=== PATIENT | female | born 1980 | race Caucasian/White ===

== ENCOUNTER 2022-07-04 13:23 | Emergency (ER) | payer OTHER ==
[2022-07-04 13:56] VITALS: BP 146/71; PULSE 94
== END 2022-07-04 15:23 | disposition home or self-care (01) ==
LOC: MW.ED 13:23
DX: F30.9 Manic episode, unspecified (principal); Z79.899 Other long term (current) drug therapy
CPT/HCPCS: 99284

== ENCOUNTER 2022-07-09 14:14 | Emergency (ER) | payer OTHER ==
[2022-07-09 15:41] LABS: ACETAMINOPHEN <2.0 ug/mL; BLOOD UREA NITROGEN,BUN 8 mg/dL (7.0-18.0); CARBON DIOXIDE,CO2 25.9 mmol/L (21.0-32.0); CHLORIDE,CL 105 mmol/L (98-107); GLUCOSE RANDOM 110 mg/dL (74-106); POTASSIUM,K 3.5 mmol/L (3.5-5.1); SODIUM,NA 143 mmol/L (136-145)
[2022-07-09 15:42] LABS: ESTIMATED GFR 82 mL/min (>60)
[2022-07-09 15:49] LABS: CORONAVIRUS COVID-19 NAA NEGATIVE (NEGATIVE); INFLUENZA A NAA POSITIVE (NEGATIVE); INFLUENZA B NAA NEGATIVE (NEGATIVE)
[2022-07-09 15:53] VITALS: BP 141/68; PULSE 98
== END 2022-07-09 15:45 ==
LOC: MW.ED 14:14
DX: F30.9 Manic episode, unspecified (principal); Z91.09 Other allergy status, other than to drugs and biological substances; Z20.822 Contact with and (suspected) exposure to COVID-19
CPT/HCPCS: 0240U; 36415; 80053; 80143; 80179; 80305; 80307; 81025; 84443; 85025; 99284